=== PATIENT | female | born 1950 | race American Indian/Alaskan Native ===

== ENCOUNTER 2019-06-20 12:25 | Inpatient (IN) | payer BC, MEDICARE ==
[~2019-06-20] VITALS: Ht 167.6 cm; Wt 89.9 kg
[2019-06-20 13:38] LABS: Basophils # (auto) 0 uL; Basophils % (auto) 0.4 % (0.0-2.0); Eosinophils # (auto) 0.1 uL; Hematocrit 45.2 % (36.0-46.0); Hemoglobin 15.4 g/dL (12.2-16.2); Lymphocytes # (auto) 1.5 uL; Lymphocytes % (auto) 16.6 % (10.0-50.0); Mean Corpuscular Hgb Conc. 34.1 g/dL (32.0-36.0); Mean Corpuscular Volume 88.1 fL (80.0-100.0); Monocytes # (auto) 0.4 uL; Monocytes % (auto) 4.9 % (0.0-12.0); Neutrophils % (auto) 77.1 % (37.0-80.0); Platelet Count (auto) 166 10^3/uL (140-450); Red Blood Cells 5.13 10^6/uL (4.0-5.20); Red Cell Distribution Width 14.3 % (11.8-14.3)
[2019-06-20] MEDS ORDERED: SODIUM CHLORIDE 0.9% 1,000 ML IV ONE (13:45)
[2019-06-20] MEDS ORDERED: ONDANSETRON HCL 4 MG/2 ML VIAL IV ONE (13:45)
[2019-06-20] MEDS ORDERED: MORPHINE SULF INJ 2 MG/ML SYRINGE 1ML IV ONE ×2 (13:45→15:00)
[2019-06-20 14:01] LABS: Albumin 4.1 g/dL (3.4-5.0); Calcium 9.5 mg/dL (8.5-10.1); Potassium 3.7 mmol/L (3.5-5.1)
[2019-06-20 14:03] LABS: BUN/Creatinine Ratio 16.8
[2019-06-20 14:16] LABS: Bilirubin, Total 0.8 mg/dL (0.2-1.0); Total Protein 7.6 g/dL (6.4-8.2)
[2019-06-20] MEDS ORDERED: SODIUM CHLORIDE 0.9% 1,000 ML IVB ONE (14:20)
[2019-06-20 16:24] LABS: Urine Bacteria NONE SEEN /hpf (None Seen); Urine Blood Negative /uL (Negative); Urine Mucus FEW (None Seen); Urine Specific Gravity 1.016 (1.001-1.035); Urine WBC 5 /hpf (0 - 5)
[2019-06-20] MEDS ORDERED: GASTROGRAFIN 120 ML SOL ONE (16:31)
[2019-06-20] MEDS ORDERED: PROMETHAZINE HCL 25 MG/ML 1ML IV PRN (18:45)
[2019-06-20] MEDS ORDERED: cefTRIAXone 1GM/50ML D5W 50 ML IV ONE (18:45)
[2019-06-20] MEDS ORDERED: NITROGLYCERIN 0.4 MG SL TAB SL PRN (18:45)
[2019-06-20] MEDS ORDERED: MORPHINE SULF INJ 2 MG/ML SYRINGE 1ML IV PRN (18:45)
[2019-06-20] MEDS: FAMOTIDINE (10MG/ML) 2ML VL IV SCH (19:22)
[2019-06-20] MEDS: SODIUM CHLORIDE 0.9% 1,000 ML IV SCH (19:22)
[2019-06-20] MEDS: MORPHINE SULFATE 4 MG/ML SYR/VIAL IV PRN (19:37)
--- NOTE | 2019-06-20 20:23 | NUR ---
ROSELYNAR received from [facility] in ED, they are waiting for the tele box and the patient will be coming up.
--- NOTE | 2019-06-20 20:56 | NUR ---
Telemetry admit from [facility] SWEENE[facility],LEONIDAS TRINH admitted to Telemetry unit after SBAR received. Patient oriented to DAVID LEE, RN primary RN, unit, room, bed, and unit policies regarding patient care and visiting hours. Patient now on continuous telemetry monitoring, tele box # 60 and telemetry reading on arrival to unit is sinus tachycardia 104 bpm. Patient placed on bedside oxygen 2 L/min via nasal cannula, weighed by bedscale and encouraged to call if they need something. All questions and concerns addressed, patient verbalized understanding. Patient is A/O x4, ambulatory, no complaints of distress or SOB. Pain is 4/0-10 to abdomen but tolerable, she was given morphine in the ED prior to coming to the unit, is at bedside, she is aware of need for NG tube pending results from imaging study or if she begins to have nausea and vomiting.
--- NOTE | 2019-06-20 21:21 | NUR ---
MED REC PER PATIENT'S NEHA SWEENEY AT BEDSIDE, HE WILL BRING IN A LIST OF THE PATIENT'S CURRENT HOME MEDICATIONS TOMORROW DURING VISITING HOURS.
[2019-06-20] MEDS: metroNIDAZOLE 500MG/100ML 100 ML IV SCH (21:51)
[2019-06-20 22:00] VITALS: BP 153/103
--- NOTE | 2019-06-21 00:02 | NUR ---
Paged hospitalist for nausea medication.
--- NOTE | 2019-06-21 00:45 | NUR ---
Hospitalist called back, new orders received for Zofran, discontinue the Phenergan. Will carry out.
[2019-06-21] MEDS: ONDANSETRON HCL 4 MG/2 ML VIAL IV PRN ×3 (01:16→21:25)
[2019-06-21] MEDS: MORPHINE SULFATE 4 MG/ML SYR/VIAL IV PRN ×2 (01:16→21:36)
--- NOTE | 2019-06-21 01:29 | NUR ---
Patient vomited 300 cc of brown liquid. Zofran and morphine given as ordered for nausea and 9/0-10 pain in the abdomen. Afterwards she stated, "I feel much better. I can feel the morphine beginning to work and now I can try and go to sleep." Patient is refusing NG tube until after the imaging series is complete and the results are all come back. She is aware of the risks and benefits of having the NG tube versus not having it. Patient verbalized understanding. Will continue to monitor.
[2019-06-21 05:00] VITALS: BP 114/84
[2019-06-21] MEDS: metroNIDAZOLE 500MG/100ML 100 ML IV SCH ×3 (05:48→21:36)
[2019-06-21] MEDS: FAMOTIDINE (10MG/ML) 2ML VL IV SCH ×2 (06:20→18:24)
[2019-06-21] MEDS: SODIUM CHLORIDE 0.9% 1,000 ML IV SCH ×2 (06:21→18:24)
--- NOTE | 2019-06-21 07:20 | NUR ---
PT AWAKE, ALERT, ORIENTEDx4. REPORTS NAUSEA WITH INTENT TO VOMIT AT MOMENT, DENIES PAIN. EXPLAINED TO PATIENT NGT THERAPY AND BENEFITS, PT REFUSES NGT PLACEMENT. SHE STATES "NOT NOW" IV INFUSING WELL TO LAC#20. BED LOCKED AND IN LOWEST POSITION, CALL LIGHT WITHIN REACH. WILL CONTINUE TO MONITOR.
[2019-06-21 09:00] VITALS: BP 121/82
[2019-06-21] MEDS: cefTRIAXone 1GM/50ML D5W 50 ML IV SCH (09:57)
[2019-06-21] MEDS ORDERED: LOSA-69 PO (12:11)
[2019-06-21] MEDS ORDERED: BUPR100T14 PO (12:11)
[2019-06-21] MEDS ORDERED: SERT-274 PO (12:11)
[2019-06-21 13:00] VITALS: BP 130/100
--- NOTE | 2019-06-21 18:40 | NUR ---
EXPLAINED TO PT REASON FOR, AND BENEFIT OF NGT. DR. GALDAMEZ RECOMMENDED NGT PLACEMENT. PT AGREED TO PLACEMENT. WHILE NGT INSERTION, PT BECAME ANXIOUS AND DEMANDED TO PULL OUT NGT, PT GRABBED TUBE AND PULLED TUBE FROM SITE, PT REPORTS THAT SHE CANNOT TOLERATE THE PROCEDURE AT THIS MOMENT. PT HAD 5 EMESIS EPISODES DURING SHIFT FOR A TOTAL OF 1000ml OF GREEN EMESIS. BED LOCKED AND IN LOWEST POSITION, CALL LIGHT WITHIN REACH. AT BEDSIDE.
--- NOTE | 2019-06-21 19:30 | NUR ---
Opening Shift Note Assumed care of patient, awake and alert. No S/S of distress/SOB. at bedside. Instructed on POC and for NG tube placement, patient refused at this time despite explaining the rationale for it. Instructed to be NPO and to call for assist PRN, patient verbalized understanding, call light within reach, will continue to monitor for changes Q1hr and PRN.
--- NOTE | 2019-06-21 20:35 | NUR ---
Encouraged patient to put NG tube and discussed the importance of it. Patient refused and appears anxious at this time. Will page hospitalist
[2019-06-21] MEDS ORDERED: ALPR0.5T PO (21:07)
[2019-06-21 22:00] VITALS: BP 159/109
--- NOTE | 2019-06-21 22:00 | NUR ---
Patient still anxious at this time, paged hospitalist for anxiety med, awaiting call back. Patient still refused NG tube placement, will try to convince patient once she's calm
--- NOTE | 2019-06-21 23:29 | NUR ---
Hospitalist Eloy called back, new order received and read back, will carry out order
[2019-06-21] MEDS ORDERED: LORazepam 2MG/ML-1ML VIAL IV PRN (23:30)
[2019-06-22] MEDS: SODIUM CHLORIDE 0.9% 1,000 ML IV SCH ×2 (03:00→20:34)
[2019-06-22 04:30] VITALS: BP 161/98
[2019-06-22] MEDS ORDERED: cloNIDine HCL 0.1 MG TAB PO ONE (05:00)
--- NOTE | 2019-06-22 05:00 | NUR ---
Patient's blood pressure is 161/98, HR 78. Noted no PRN BP meds, paged hospitalist and spoke to Eloy. New order received and read back, will carry out order
[2019-06-22] MEDS: metroNIDAZOLE 500MG/100ML 100 ML IV SCH ×3 (05:50→21:31)
[2019-06-22] MEDS: FAMOTIDINE (10MG/ML) 2ML VL IV SCH ×2 (05:51→18:13)
--- NOTE | 2019-06-22 06:56 | NUR ---
Rechecked BP after Clonidine its 150/101, HR 88, O2 Sat 96%, will endorse to dayshift RN
[2019-06-22 09:00] VITALS: BP 149/106
[2019-06-22] MEDS: cefTRIAXone 1GM/50ML D5W 50 ML IV SCH (09:00)
--- NOTE | 2019-06-22 09:25 | NUR ---
PT SEEN BY DR. CAMARENA'S HYDRAULIC JACK MECHANIC SAWYER, MADE AWARE PT IS STILL REFUSING NG TUBE.
[2019-06-22] MEDS: ONDANSETRON HCL 4 MG/2 ML VIAL IV PRN ×2 (11:49→20:42)
[2019-06-22 13:00] VITALS: BP 148/92
--- NOTE | 2019-06-22 15:05 | NUR ---
PT STILL REFUSED NGT INSERTION, PT EDUCATED ON THE IMPORTANCE OF PUTTING NGT, WILL CONTINUE TO MONITOR.
[2019-06-22] MEDS: MORPHINE SULFATE 4 MG/ML SYR/VIAL IV PRN ×2 (15:13→22:58)
[2019-06-22 16:48] VITALS: BP 142/96
--- NOTE | 2019-06-22 19:35 | NUR ---
Opening Shift Note Assumed care of patient, awake and alert. No S/S of distress/SOB. Instructed on POC, patient still refused NG tube placement despite explaining the rationale for it. Instructed to be NPO and to call for assist PRN, patient verbalized understanding, call light within reach, will continue to monitor for changes Q1hr and PRN.
[2019-06-22 22:32] VITALS: BP 159/97
[2019-06-23] MEDS: ONDANSETRON HCL 4 MG/2 ML VIAL IV PRN ×4 (02:42→23:20)
[2019-06-23 05:00] VITALS: BP 163/98
--- NOTE | 2019-06-23 05:00 | NUR ---
Patient anxious at this time, BP 160/98, HR 84. Noted no PRN meds for anxiety and HTN, paged hospitalist, awaiting call back
--- NOTE | 2019-06-23 05:09 | NUR ---
Hospitalist Malik called back, received new order at this time and read back, will carry out order
[2019-06-23] MEDS ORDERED: LABETALOL HCL 5 MG/ML ML 20ML VIAL IV PRN (05:15)
[2019-06-23] MEDS: metroNIDAZOLE 500MG/100ML 100 ML IV SCH ×3 (05:45→22:14)
[2019-06-23] MEDS: SODIUM CHLORIDE 0.9% 1,000 ML IV SCH (05:45)
[2019-06-23] MEDS: LORazepam 2MG/ML-1ML VIAL IV PRN ×2 (05:47→17:01)
[2019-06-23] MEDS: FAMOTIDINE (10MG/ML) 2ML VL IV SCH ×2 (05:58→20:40)
[2019-06-23 08:00] VITALS: BP 143/78
[2019-06-23] MEDS ORDERED: FLEET ENEMA(ADULT) 135 ML PR ONE (08:15)
[2019-06-23 08:24] VITALS: BP 143/78
[2019-06-23 09:15] LABS: Potassium 3.6 mmol/L (3.5-5.1)
[2019-06-23 09:22] LABS: Albumin 3.4 g/dL (3.4-5.0); BUN/Creatinine Ratio 31.7; Bilirubin, Total 0.7 mg/dL (0.2-1.0); Calcium 8.5 mg/dL (8.5-10.1); Magnesium 2.1 mg/dL (1.6-2.6); Phosphorus 2.3 mg/dL (2.5-4.90); Pre Albumin 19.5 mg/dL (20.0-40.0); Total Protein 6.4 g/dL (6.4-8.2)
[2019-06-23] MEDS: cefTRIAXone 1GM/50ML D5W 50 ML IV SCH (09:35)
[2019-06-23] MEDS: MORPHINE SULFATE 4 MG/ML SYR/VIAL IV PRN ×2 (09:46→22:01)
[2019-06-23] MEDS ORDERED: TPN PER PHARMACY 0 ML IV SCH (11:45)
--- NOTE | 2019-06-23 12:09 | NUR ---
NUTRITION CONSULT/ASSESSMENT NOTES Please refer to link notes of nutrition screen form filed under the intervention section of the plan of care for further details. Est. Needs: 1650 kcal to 1850 kcal (18-20 kcal/kgBW), 59 gms to 65 gms pro (1.0-1.3 gms/kgBW d/t low Prealb). Will continue to monitor pertinent labs and reassess nutrient need prn Thank you for this consult. Addendum: 06/23/19 at [address] Amended: Links added.
[2019-06-23 12:42] VITALS: BP 159/95
[2019-06-23 15:08] LABS: Basophils # (auto) 0.1 uL; Basophils % (auto) 0.6 % (0.0-2.0); Eosinophils # (auto) 0.2 uL; Eosinophils % (auto) 2.3 % (0.0-7.0); Hematocrit 40.4 % (36.0-46.0); Hemoglobin 14.3 g/dL (12.2-16.2); Lymphocytes # (auto) 1.2 uL; Lymphocytes % (auto) 14.3 % (10.0-50.0); Mean Corpuscular Hemoglobin 31.2 pg (28.0-32.0); Mean Corpuscular Hgb Conc. 35.4 g/dL (32.0-36.0); Mean Corpuscular Volume 88.2 fL (80.0-100.0); Monocytes # (auto) 0.5 uL; Monocytes % (auto) 5.8 % (0.0-12.0); Neutrophils # (auto) 6.4 uL; Platelet Count (auto) 149 10^3/uL (140-450); Red Blood Cells 4.59 10^6/uL (4.0-5.20); Red Cell Distribution Width 13.9 % (11.8-14.3); White Blood Cell 8.3 10^3/uL (4.4-10.8)
[2019-06-23 15:20] LABS: INR 1.08 (0.9-1.15); Partial Thromboplastin Time 26.8 sec (23.64-32.05)
[2019-06-23] MEDS: D5W 5% 1,000 ML IV SCH ×2 (15:37→23:30)
[2019-06-23 16:40] VITALS: BP 160/87
--- NOTE | 2019-06-23 17:13 | NUR ---
PICC LINE RN AT BEDSIDE.
--- NOTE | 2019-06-23 19:30 | NUR ---
Opening Shift Note Assumed care of patient, awake and alert, ambulatory. at bedside. Instructed to maintain NPO, for Ex Lap tomorrow. Instructed to call for assist as needed, patient verbalized understanding, call light within reach, will continue to monitor for changes Q1hr and PRN.
[2019-06-23] MEDS ORDERED: PPN PER PHARMACY IV NR ×9 (20:00)
[2019-06-23] MEDS ORDERED: SODIUM CHLORIDE 0.9% 1,000 ML IV SCH (20:00)
--- NOTE | 2019-06-23 22:15 | NUR ---
Fleet enema done, patient on bedside commode and had a very small bowel movement. Vomited bilous of 300 ml as well. Instructed the need of NG tube placement explaining the rationale of it but patient still refused. Kept NPO, will continue to monitor
--- NOTE | 2019-06-23 22:40 | NUR ---
IV leaking on LAC, removed with catheter intact, patient tolerated well
--- NOTE | 2019-06-23 22:45 | NUR ---
IV insertion IV access obtained, via clean sterile technique by inserting 20 gauge catheter at Right Hand and 18g on Right wrist after [1] attempt by SHANIQUE Uriostegui. IV secured properly. No trauma to site. Patient tolerated well.
[2019-06-24] MEDS ORDERED: DEXTROSE (50%) 50ML SYRG IV SCH
[2019-06-24] MEDS: ACCU-CHEK COMFORT CURVE STRIP VI SCH ×4 (00:26→17:53)
[2019-06-24 05:57] VITALS: BP 166/92
[2019-06-24] MEDS: InsuLIN REG 1unit/0.01ml Soln (100units/ml) SC SCH ×4 (06:00→17:53)
[2019-06-24] MEDS: ONDANSETRON HCL 4 MG/2 ML VIAL IV PRN ×2 (06:06→17:52)
[2019-06-24] MEDS: metroNIDAZOLE 500MG/100ML 100 ML IV SCH ×3 (06:06→21:30)
[2019-06-24] MEDS: FAMOTIDINE (10MG/ML) 2ML VL IV SCH ×2 (06:06→19:10)
--- NOTE | 2019-06-24 06:35 | NUR ---
CHG wipes done, complete linen changed
[2019-06-24] MEDS ORDERED: DOXAPRAM HCL 20 MG/ML 20ML VIAL INJ IV ONE (06:58)
[2019-06-24] MEDS ORDERED: SUCCINYLCHOLINE CHLORIDE 20 MG/ML 10ML VIAL IV ONE (06:58)
--- NOTE | 2019-06-24 07:00 | NUR ---
Brought patient down to Pre Op, patient alert/oriented and not in distress. Endorsed care to SHANIQUE Bender
[2019-06-24 07:13] LABS: Basophils # (auto) 0.1 uL; Basophils % (auto) 1.1 % (0.0-2.0); Eosinophils # (auto) 0.2 uL; Eosinophils % (auto) 2.9 % (0.0-7.0); Hemoglobin 14.3 g/dL (12.2-16.2); Lymphocytes % (auto) 13.8 % (10.0-50.0); Mean Corpuscular Hemoglobin 30.3 pg (28.0-32.0); Mean Corpuscular Hgb Conc. 34.8 g/dL (32.0-36.0); Mean Corpuscular Volume 86.9 fL (80.0-100.0); Monocytes # (auto) 0.5 uL; Monocytes % (auto) 6.6 % (0.0-12.0); Neutrophils # (auto) 5.7 uL; Neutrophils % (auto) 75.6 % (37.0-80.0); Platelet Count (auto) 151 10^3/uL (140-450); Red Blood Cells 4.72 10^6/uL (4.0-5.20); Red Cell Distribution Width 14.3 % (11.8-14.3); White Blood Cell 7.5 10^3/uL (4.4-10.8)
[2019-06-24] MEDS ORDERED: ceFAZolin 1GM/50ML 50 ML IV ONE (07:19)
--- NOTE | 2019-06-24 07:25 | NUR ---
Opening Shift Note Assumed care of patient, patient off floor in procedure.
[2019-06-24 07:26] LABS: Albumin 3.6 g/dL (3.4-5.0); Calcium 8.6 mg/dL (8.5-10.1); Potassium 3.3 mmol/L (3.5-5.1)
[2019-06-24] MEDS ORDERED: fentaNYL CITRATE 100 MCG/2 ML VL ONE (07:26)
[2019-06-24] MEDS ORDERED: HYDROmorphone HCL 2 MG/ML VL ONE (07:26)
[2019-06-24] MEDS ORDERED: fentaNYL CITRATE 10 ML ONE (07:26)
[2019-06-24] MEDS ORDERED: PROPOFOL 10 MG/ML 20 ML IV ONE (07:27)
[2019-06-24] MEDS ORDERED: ONDANSETRON HCL 4 MG/2 ML VIAL ONE (07:27)
[2019-06-24] MEDS ORDERED: MIDAZOLAM HCL 1MG/1ML-2 ML VIAL ONE (07:27)
[2019-06-24] MEDS ORDERED: ROCURONIUM 10MG/ML 10ML VIAL IV ONE (07:27)
[2019-06-24] MEDS ORDERED: SODIUM CHLORIDE LOCK 10 ML ONE (07:27)
[2019-06-24 07:28] LABS: BUN/Creatinine Ratio 32.1
[2019-06-24 07:31] LABS: Bilirubin, Total 0.9 mg/dL (0.2-1.0); Total Protein 6.7 g/dL (6.4-8.2)
[2019-06-24 07:34] LABS: Phosphorus 2.1 mg/dL (2.5-4.90)
[2019-06-24] MEDS ORDERED: HYDROmorphone HCL 2 MG/ML VL IV PRN (09:00)
[2019-06-24] MEDS: cefTRIAXone 1GM/50ML D5W 50 ML IV SCH (09:00)
[2019-06-24] MEDS ORDERED: fentaNYL CITRATE 100 MCG/2 ML VL IV PRN (09:00)
[2019-06-24] MEDS ORDERED: METOCLOPRAMIDE HCL 5MG/ml INJ 2ml VIAL IV PRN (09:00)
[2019-06-24] MEDS: D5W 5% 1,000 ML IV SCH ×2 (09:30→19:30)
[2019-06-24] MEDS ORDERED: POTASSIUM PHOSPHATE 44 MEQ in D5W 5% 250 ML IV ONE (09:30)
[2019-06-24] MEDS ORDERED: NEOSTIGMINE 1 MG/ML INJ (10mg/10ML VIAL) ONE (09:42)
[2019-06-24] MEDS ORDERED: GLYCOPYRROLATE 0.2 MG/ML 1ML VIAL ONE (09:42)
[2019-06-24] MEDS ORDERED: ENOXAPARIN SOD 40 MG/0.4 ML SYRINGE SC SCH (10:00)
[2019-06-24] MEDS ORDERED: D5W/SOD CHL 0.45%/KCL 40MEQ 1,000 ML IV ONE ×2 (10:15→12:45)
[2019-06-24] MEDS ORDERED: TPN PER PHARMACY 0 ML IV SCH (10:15)
--- NOTE | 2019-06-24 11:28 | NUR ---
Patient returned to floor from surgery, VS 118/81, 93%, 90 HR, 96.3 axillary, RR 18. Patient NG to LIS. Patient resting in bed with bedside. Will continue to monitor. Addendum: 06/24/19 at 1142 by GRACY FUENTES RN RN Patient NG on Low Continuous suction
[2019-06-24 12:49] VITALS: BP 118/81
--- NOTE | 2019-06-24 14:12 | NUR ---
PICC Line nurse bedside with patient.
--- NOTE | 2019-06-24 14:45 | NUR ---
PICC line placement Patient/Patient significant other educated on need for PICC line placement. All risks and benefits explained and all questions and concerns addressed prior to procedure. Noted past medical history and allergies with no contraindications. INR and Plt counts within acceptable range. 5 fr PICC line inserted via left basilic vein using [employer] US and Tip Location System x 1 attempt. Sterile technique with maximum barrier precautions utilized. Blood return obtained from each of the two lumens and each flushed easily with NS using proper technique. PICC secured with Stat-lock; biodisc and occlusive dressing applied. Stat portable chest x-ray obtained for PICC tip placement. *Baseline Arm Circumference 29.5 cm. *Internal Length 44 cm. *External Length 0 cm. *PICC lot #[id number]. Note: EBL 2mls. Tolerated well.
[2019-06-24] MEDS ORDERED: LIDOCAINE 1% (LOCAL ANESTH.) PF 5ml SDV ID ONE (15:00)
--- NOTE | 2019-06-24 15:02 | NUR ---
Okay to use PICC Line X-ray completed. Primary RN notified.
[2019-06-24 17:00] VITALS: BP 120/79
[2019-06-24] MEDS: MORPHINE SULFATE 4 MG/ML SYR/VIAL IV PRN (17:52)
--- NOTE | 2019-06-24 19:34 | NUR ---
OPENING NOTES RECEIVED REPORT FROM DAY SHIFT NURSE, GRACY. PT IS AWAKE, ALERT AND ORIENTATED X 4 WITH NO S/S OF DISTRESS NOR SOB, PT CLAIMS PAIN 5/10. PT HAS NG TUBE AND ON CONTINUOUS INTERMITTENT SUCTION. ABDOMEN MIDLINE INCISION INTACT WITH SCANT DISCHARGE. PT HAS PPN RUNNING AT 44ML VIA LEFT UPPER ARM PICC LINE. BED IS IN LOWEST POSITION AND HOB IS 30 DEGREES. SIDE RAILS ARE UP X 2. BED BRAKES ARE LOCKED AND CALL LIGHT IS WITH IN REACH. WILL CONTINUE TO MONITOR Q 1HR.
[2019-06-24 20:00] VITALS: BP 135/80
[2019-06-24] MEDS ORDERED: PPN PER PHARMACY IV NR ×11 (20:00)
[2019-06-24] MEDS: LORazepam 2MG/ML-1ML VIAL IV PRN (21:29)
[2019-06-24] MEDS: SODIUM CHLOR 0.9% PF (SALINE LOCK) 10ML VIAL/SYR IV SCH (21:30)
[2019-06-24 22:54] VITALS: BP 126/78
[2019-06-25] MEDS: ACCU-CHEK COMFORT CURVE STRIP VI SCH ×4 (00:02→17:44)
[2019-06-25] MEDS: MORPHINE SULFATE 4 MG/ML SYR/VIAL IV PRN ×3 (00:09→17:44)
[2019-06-25] MEDS: ONDANSETRON HCL 4 MG/2 ML VIAL IV PRN ×3 (00:09→17:44)
[2019-06-25] MEDS: InsuLIN REG 1unit/0.01ml Soln (100units/ml) SC SCH ×4 (00:10→17:44)
[2019-06-25 05:35] VITALS: BP 142/87
[2019-06-25] MEDS: metroNIDAZOLE 500MG/100ML 100 ML IV SCH ×3 (05:48→21:33)
[2019-06-25] MEDS: LORazepam 2MG/ML-1ML VIAL IV PRN ×2 (05:55→21:33)
[2019-06-25] MEDS: FAMOTIDINE (10MG/ML) 2ML VL IV SCH ×2 (06:27→18:53)
--- NOTE | 2019-06-25 06:57 | NUR ---
NG OUTPUT 110 ML OF DARK GREEN FLUID.
--- NOTE | 2019-06-25 07:27 | NUR ---
CLOSING NOTES ENDORSED CARE TO DAY SHIFT NURSEPATO.
[2019-06-25 08:00] VITALS: BP 137/93
--- NOTE | 2019-06-25 08:00 | NUR ---
Opening Shift Note Assumed care of patient, awake and alert. No S/S of distress/SOB or pain. Instructed on POC and to call for assist PRN, will continue to monitor for changes Q1hr and PRN. Call light within reach and bed at lowest position.
[2019-06-25] MEDS: cefTRIAXone 1GM/50ML D5W 50 ML IV SCH (08:58)
[2019-06-25] MEDS: SODIUM CHLOR 0.9% PF (SALINE LOCK) 10ML VIAL/SYR IV SCH ×2 (08:59→21:33)
[2019-06-25 09:00] VITALS: BP 137/93
[2019-06-25 09:31] LABS: Basophils # (auto) 0 uL; Basophils % (auto) 0.5 % (0.0-2.0); Eosinophils # (auto) 0 uL; Eosinophils % (auto) 0.4 % (0.0-7.0); Hematocrit 33.5 % (36.0-46.0); Hemoglobin 11.8 g/dL (12.2-16.2); Lymphocytes # (auto) 1.1 uL; Lymphocytes % (auto) 14.9 % (10.0-50.0); Mean Corpuscular Hemoglobin 32.2 pg (28.0-32.0); Mean Corpuscular Hgb Conc. 35.2 g/dL (32.0-36.0); Mean Corpuscular Volume 91.4 fL (80.0-100.0); Monocytes # (auto) 0.4 uL; Monocytes % (auto) 5.6 % (0.0-12.0); Neutrophils # (auto) 5.6 uL; Neutrophils % (auto) 78.6 % (37.0-80.0); Nucleated Red Blood Cells % 0.1 %; Platelet Count (auto) 119 10^3/uL (140-450); Red Blood Cells 3.67 10^6/uL (4.0-5.20); Red Cell Distribution Width 14.4 % (11.8-14.3); White Blood Cell 7.1 10^3/uL (4.4-10.8)
--- NOTE | 2019-06-25 10:45 | NUR ---
RECEIVED A CALL FROM LAB, PATIENT LAB VALUES HIGH, MAY BE CONTAMINATED DRAW. LAB TO COME TO DRAW NEW LABS VIA VENIPUNCTURE NOT THROUGH PICC LINE.
--- NOTE | 2019-06-25 12:00 | NUR ---
DR HENRY ROUNDING ORDERS RECEIVED WILL IMPLEMENT
--- NOTE | 2019-06-25 12:02 | NUR ---
PER DR HENRY PATIENT TO SIT UP AND AMBULATE WITH ASSIST.
[2019-06-25] MEDS ORDERED: ENOXAPARIN SOD 40 MG/0.4 ML SYRINGE SC ONE (12:15)
--- NOTE | 2019-06-25 12:33 | NUR ---
Nutrition Follow-up Notes Wt.: 89.3 kg Pt was sleeping with no family by bedside. per records pt s/p sx for SBO 06/24. pt is currently NPO with PN support @ 58 ml.hr providing 848 kcals and 60 gm proteins 608 NPC. pt with inadequate PN support as it meets 45-51% kcals and 95-1015 proteins Est. Needs: 1650 kcal to 1850 kcal (18-20 kcal/kgBW), 59 gms to 65 gms pro (1.0-1.3 gms/kgBW d/t low Prealb). Will continue to monitor pertinent labs and reassess nutrient need prn Labs: GLU 121 H, BUN 27 H Skin: Tree scale 19, low risk, incision at site of sx per transcribing machine operator. GI: Pt has no BM reported per transcribing machine operator. PES: Altered nutrition related lab values r/t current/chronic medical condition aeb hyperglycemia, hypernatremia, hyperchloremia, elev. BUN, low Phos and Prealbumin levels. Increased nutrient needs r/t current medical condition aeb Acute abdominal pain,Small bowel obstruction,History of uterine cancer, NPO with PN support. Will continue to monitor NPO status, PN tolerance skin status, pertinent labs and weight trend. F/u in 2-3 days. Rec.: 1.) If still NPO with PN support, consider gradual increase on calories and protein to meet at least 75% of est nutrient needs. 2.) Advance gradually to oral diet when medically appropriate. 3.) Refer to RD for further nutrition educ. and weight monitoring upon discharge. 4.) Continue current plan of care.
[2019-06-25 13:00] VITALS: BP 141/88
[2019-06-25 13:21] LABS: Albumin 2.6 g/dL (3.4-5.0); Calcium 7.9 mg/dL (8.5-10.1); Magnesium 1.8 mg/dL (1.6-2.6); Potassium 3.4 mmol/L (3.5-5.1)
[2019-06-25 13:24] LABS: BUN/Creatinine Ratio 24.1; Bilirubin, Total 0.8 mg/dL (0.2-1.0); Total Protein 5.4 g/dL (6.4-8.2)
[2019-06-25] MEDS ORDERED: POTASSIUM PHOSP 22MEQ(15MMOLE) in NS 100 ML IV ONE (14:30)
[2019-06-25 17:00] VITALS: BP 125/80
--- NOTE | 2019-06-25 19:47 | NUR ---
RECEIVED PATIENT FROM DAY SHIFT RN. PATENT RESTING IN BED. NO S/S OF DISTRESS NOTED. DENIED PAIN AND NAUSEA FOR NOW. NG TUBE IN PLACE ON LCS, DEE CATH IN PLACE DRAINING GRAVITY. PICC LINE IN PLACE FLUSHING WELL WITH NS. POC INSTRUCTED AND ENCOURAGED PATIENT TO CALL FOR IMPORT EXPORT MANAGER IF NEEDED. BED IN LOWEST POSITION WITH SIDE RAILS UP X 2. CALL POTTS WITHIN REACH. ALARM ON. CONTINUE TO MONITOR FOR CHANGES Q1H AND PRN.
[2019-06-25] MEDS ORDERED: TPN PER PHARMACY IV NR ×11 (20:00)
[2019-06-25 21:00] VITALS: BP 138/78
[2019-06-25] MEDS ORDERED: POTASSIUM PHOSPHATE 22 MEQ in SODIUM CHL 0.9% 100 ML IV ONE (21:00)
--- NOTE | 2019-06-25 21:43 | NUR ---
CALLED PHARMACY FOR POTASSIUM. WILL SENT IT LATER. CONTINUE TO MONITOR.
[2019-06-26] MEDS: InsuLIN REG 1unit/0.01ml Soln (100units/ml) SC SCH ×4 (00:16→18:44)
[2019-06-26] MEDS: ACCU-CHEK COMFORT CURVE STRIP VI SCH ×4 (00:17→18:00)
[2019-06-26] MEDS: MORPHINE SULFATE 4 MG/ML SYR/VIAL IV PRN (00:17)
[2019-06-26] MEDS: ONDANSETRON HCL 4 MG/2 ML VIAL IV PRN ×2 (00:17→18:47)
--- NOTE | 2019-06-26 00:19 | NUR ---
PAIN MANAGEMENT MEDICATED PATIENT FOR PAIN @ 04/08. CONTINUE TO MONITOR.
--- NOTE | 2019-06-26 00:19 | NUR ---
ACCU-CHECK, BS 148. INSULIN GIVEN ORDERED. CONTINUE TO MONITOR.
--- NOTE | 2019-06-26 03:04 | NUR ---
ASSISTED PATIENT TO BEDSIDE COMMODE. PATIENT TOLERATED WELL. NO BM. CONTINUE TO MONITOR.
[2019-06-26 04:30] VITALS: BP 145/79
[2019-06-26] MEDS: metroNIDAZOLE 500MG/100ML 100 ML IV SCH ×3 (06:02→22:21)
[2019-06-26] MEDS: FAMOTIDINE (10MG/ML) 2ML VL IV SCH ×2 (06:03→18:45)
[2019-06-26] MEDS: LORazepam 2MG/ML-1ML VIAL IV PRN ×3 (06:03→23:09)
--- NOTE | 2019-06-26 06:03 | NUR ---
ACCU-CHECK, BS 145. INSULIN GIVEN ORDERED. CONTINUE TO MONITOR.
--- NOTE | 2019-06-26 07:32 | NUR ---
TOTAL OUTPUT FROM NG TUBE WAS 100 ML GREENISH BILE. CONTINUE TO MONITOR.
[2019-06-26 08:00] VITALS: BP 142/56
[2019-06-26 09:00] VITALS: BP 142/86
[2019-06-26 09:13] LABS: Basophils # (auto) 0.1 uL; Basophils % (auto) 0.8 % (0.0-2.0); Eosinophils # (auto) 0.1 uL; Eosinophils % (auto) 1.7 % (0.0-7.0); Hemoglobin 11.5 g/dL (12.2-16.2); Lymphocytes # (auto) 1.1 uL; Lymphocytes % (auto) 14.6 % (10.0-50.0); Mean Corpuscular Hemoglobin 30.3 pg (28.0-32.0); Mean Corpuscular Hgb Conc. 34.8 g/dL (32.0-36.0); Mean Corpuscular Volume 86.8 fL (80.0-100.0); Monocytes # (auto) 0.5 uL; Monocytes % (auto) 6.4 % (0.0-12.0); Neutrophils # (auto) 5.5 uL; Neutrophils % (auto) 76.5 % (37.0-80.0); Platelet Count (auto) 119 10^3/uL (140-450); White Blood Cell 7.3 10^3/uL (4.4-10.8)
[2019-06-26] MEDS: cefTRIAXone 1GM/50ML D5W 50 ML IV SCH (09:23)
[2019-06-26] MEDS: ENOXAPARIN SOD 40 MG/0.4 ML SYRINGE SC SCH (09:24)
[2019-06-26 09:28] LABS: Albumin 2.2 g/dL (3.4-5.0); Calcium 7.7 mg/dL (8.5-10.1); Magnesium 1.9 mg/dL (1.6-2.6); Potassium 3.5 mmol/L (3.5-5.1)
[2019-06-26] MEDS: SODIUM CHLOR 0.9% PF (SALINE LOCK) 10ML VIAL/SYR IV SCH ×2 (09:30→22:21)
[2019-06-26 09:31] LABS: BUN/Creatinine Ratio 23.9; Bilirubin, Total 0.5 mg/dL (0.2-1.0); Phosphorus 2.1 mg/dL (2.5-4.90); Total Protein 5.1 g/dL (6.4-8.2)
[2019-06-26 13:00] VITALS: BP 130/84
[2019-06-26] MEDS ORDERED: POTASSIUM PHOSP 26.4MEQ(18MMOL) IN NS 100 ML IV ONE (14:00)
--- NOTE | 2019-06-26 15:20 | NUR ---
DEE REMOVED WITH TOTAL OUTPUT 500ML PATIENT TOLERATED WELL
--- NOTE | 2019-06-26 16:13 | NUR ---
PATIENT HAS BEEN TO THE BEDSIDE COMMODE SEVERAL TIMES TODAY, NO BM. PATIENT WAS ABLE TO GET BACK IN BAD INDEPENDENTLY WELL SIT UP AT THE EDGE OF BED INDEPENDENTLY.
[2019-06-26 16:58] VITALS: BP 144/83
--- NOTE | 2019-06-26 19:40 | NUR ---
Opening Shift Note Assumed care of patient, awake and alert. No S/S of distress/SOB or pain. Family at bedside. Bed in lowest locked position, side rails up x2, call light within reach. Midline dressing noted to be clean, dry, and intact with minimal drainage. Abdominal binder noted in place. Patient denies flatus, denies bowel movement at this time. Patient told to inform staff if either occur, patient verbalized understanding. NG tube connected to low continuous suction as ordered, dark green drainage noted in canister at this time. Instructed on POC and to call for assist PRN, will continue to monitor for changes Q1hr and PRN. Addendum: 06/27/19 at 0802 by SHER GONZALEZ RN RN ADDITION: Patient educated on use and importance of incentive spirometer, patient verbalized understanding. Will encourage use throughout shift and continue to monitor.
[2019-06-26] MEDS ORDERED: TPN PER PHARMACY IV NR ×11 (20:00)
[2019-06-26 22:00] VITALS: BP 143/86
--- NOTE | 2019-06-26 22:00 | NUR ---
Regarding Pain Patient reporting 6/10 pain to abdominal incision, refusing to take ordered PRN Morphine without Zofran, requesting PRN Ativan at this time. Patient made aware Ativan not due yet, will administer as ordered. Patient verbalized understanding. Will continue to monitor.
[2019-06-27] MEDS: MORPHINE SULFATE 4 MG/ML SYR/VIAL IV PRN ×2 (01:17→17:50)
[2019-06-27] MEDS: ONDANSETRON HCL 4 MG/2 ML VIAL IV PRN ×2 (01:18→17:51)
[2019-06-27 05:42] VITALS: BP 140/86
[2019-06-27 06:21] LABS: Basophils # (auto) 0 uL; Basophils % (auto) 0.5 % (0.0-2.0); Eosinophils # (auto) 0.1 uL; Eosinophils % (auto) 2.3 % (0.0-7.0); Hematocrit 30.5 % (36.0-46.0); Lymphocytes # (auto) 0.9 uL; Lymphocytes % (auto) 14.3 % (10.0-50.0); Mean Corpuscular Hemoglobin 31.2 pg (28.0-32.0); Mean Corpuscular Hgb Conc. 36.2 g/dL (32.0-36.0); Mean Corpuscular Volume 86.3 fL (80.0-100.0); Monocytes # (auto) 0.4 uL; Monocytes % (auto) 6.2 % (0.0-12.0); Neutrophils # (auto) 4.8 uL; Neutrophils % (auto) 76.7 % (37.0-80.0); Platelet Count (auto) 120 10^3/uL (140-450); Red Blood Cells 3.54 10^6/uL (4.0-5.20); Red Cell Distribution Width 14.2 % (11.8-14.3); White Blood Cell 6.3 10^3/uL (4.4-10.8)
[2019-06-27 06:44] LABS: Potassium 3.5 mmol/L (3.5-5.1)
[2019-06-27 06:56] LABS: Albumin 2.2 g/dL (3.4-5.0); BUN/Creatinine Ratio 26.2; Bilirubin, Total 0.5 mg/dL (0.2-1.0); Calcium 7.7 mg/dL (8.5-10.1); Magnesium 2.1 mg/dL (1.6-2.6); Total Protein 4.9 g/dL (6.4-8.2)
[2019-06-27] MEDS: FAMOTIDINE (10MG/ML) 2ML VL IV SCH ×2 (06:57→19:59)
[2019-06-27] MEDS: ACCU-CHEK COMFORT CURVE STRIP VI SCH ×5 (06:57→23:56)
[2019-06-27] MEDS: metroNIDAZOLE 500MG/100ML 100 ML IV SCH ×3 (06:57→23:55)
[2019-06-27] MEDS: InsuLIN REG 1unit/0.01ml Soln (100units/ml) SC SCH ×4 (07:07→17:49)
--- NOTE | 2019-06-27 07:17 | NUR ---
Closing Note Patient lying in bed, eyes closed, respirations even and unlabored, appears asleep. No s/s of distress. Bed in lowest locked position, side rails up x2, call light within reach. Care endorsed to mitch BAY. Addendum: 06/27/19 at 800 by SHER GONZALEZ RN RN ADDITION: 50 ml of dark green output removed from NG tube canister. Addendum: 06/27/19 at 08 by SHRE GONZALEZ RN RN ADDITION: Patient denies flatulence, denies bowel movement at time of note, despite multiple trips to bedside commode.
--- NOTE | 2019-06-27 07:25 | NUR ---
Opening Shift Note Assumed care of patient, awake and alert. No S/S of distress/SOB or pain. Instructed on POC and to call for assist PRN, will continue to monitor for changes Q1hr and PRN.
[2019-06-27 08:00] VITALS: BP 140/83
[2019-06-27 08:10] VITALS: BP 140/83
[2019-06-27] MEDS: cefTRIAXone 1GM/50ML D5W 50 ML IV SCH (09:08)
[2019-06-27] MEDS: LORazepam 2MG/ML-1ML VIAL IV PRN ×2 (09:09→20:36)
[2019-06-27] MEDS: ENOXAPARIN SOD 40 MG/0.4 ML SYRINGE SC SCH (10:11)
[2019-06-27] MEDS: SODIUM CHLOR 0.9% PF (SALINE LOCK) 10ML VIAL/SYR IV SCH ×2 (10:13→23:56)
[2019-06-27] MEDS ORDERED: TEMAZEPAM 15 MG CAP NG PRN (10:15)
[2019-06-27 12:00] VITALS: BP 147/94
--- NOTE | 2019-06-27 13:30 | NUR ---
PICC LINE REMOVED BY TOWN ADMINISTRATOR CHRIS. PICC LINE CATHETER INTACT, PRESSURE APPLIED, COVERED WITH 2X2 AND COVERED WITH TEGADERMZoran QUILES AT BEDSIDE,PATIENT TOLERATED WELL. Addendum: 06/27/19 at 1617 by MARIE SAUNDERS RN RN WRONG PATIENT.
[2019-06-27] MEDS: ALPRAZolam 0.5 MG TAB NG SCH ×3 (14:00→23:48)
--- NOTE | 2019-06-27 14:00 | NUR ---
UNABLE TO VERIFY PLACEMENT OF NGT. ALPRAZOLAM NOT GIVEN TILL PLACEMENT CONFIRMED.
--- NOTE | 2019-06-27 14:39 | NUR ---
PAGED DOCTOR MIGUE. AWAITING CALL BACK.
--- NOTE | 2019-06-27 15:15 | NUR ---
UNABLE TO VERIFY PLACEMENT OF NGT. SPOKE WITH YARI REGARDING NG TUBE PLACEMENT.ORDERS RECEIVED TO VERIFY PLACEMENT WITH CHEST XRAY. PER RAMONA OKAY TO ADVANCE NG TUBE IF NOT IN POSITION.
[2019-06-27 16:57] VITALS: BP 134/82
--- NOTE | 2019-06-27 17:00 | NUR ---
PATIENT REFUSED ADVANCEMENT OF NG TUBE.
--- NOTE | 2019-06-27 19:00 | NUR ---
NOC RN AWARE OF NG TUBE NOT IN POSITION. CARE ENDORSED TO WIRE WEAVER HELPER.
--- NOTE | 2019-06-27 19:20 | NUR ---
Opening Shift Note Assumed care of patient, awake and alert. No S/S of distress/SOB or pain. Family at bedside. Bed in lowest locked position, side rails up x2, call light within reach. Midline dressing noted to be clean, dry, and intact with minimal drainage. Abdominal binder noted in place. Patient again denies flatus, denies bowel movement at this time. Patient told to inform staff if either occur, patient verbalized understanding. Patient reporting epistaxis, states she has nose bleeds, "two to three times a week at home". NG tube advanced as ordered by Dr. Regine Bush to 65 cm, 400 ml of dark green drainage output drained into canister at time of advancement. Placement confirmed with auscultation and patient reporting relief from abdominal pain, will also confirm with morning chest x-ray. NG tube again connected to low continuous suction as ordered, dark green drainage noted in canister at this time. Instructed on POC and to call for assist PRN, will continue to monitor for changes Q1hr and PRN. Patient educated on use and importance of incentive spirometer, patient verbalized understanding. Will again encourage use throughout shift and continue to monitor.
[2019-06-27] MEDS ORDERED: TPN PER PHARMACY IV NR ×10 (20:00)
[2019-06-27 22:12] VITALS: BP 131/90
--- NOTE | 2019-06-27 23:35 | NUR ---
Regarding Xanex Patient refusing Xanex at this time, states she does not want it administered through NG tube because she does "not want anything to happen to [the NG tube]." Patient educated on administration of medication through NG tube including why medication cannot be administered PO. Patient verbalized understanding, continues to refuse at this time, states "I would rather wait for my Ativan." Patient aware Ativan not due at this time and will be administered as ordered, patient verbalized understanding. No s/s of distress. Will continue to monitor.
[2019-06-28] VITALS (7 sets, daily range): BP systolic 123–134; BP diastolic 75–90
[2019-06-28] MEDS: ONDANSETRON HCL 4 MG/2 ML VIAL IV PRN ×3 (00:29→20:41)
[2019-06-28] MEDS: InsuLIN REG 1unit/0.01ml Soln (100units/ml) SC SCH ×4 (00:30→18:00)
[2019-06-28] MEDS: MORPHINE SULFATE 4 MG/ML SYR/VIAL IV PRN ×3 (00:30→20:41)
[2019-06-28] MEDS: ALPRAZolam 0.5 MG TAB NG SCH (06:00)
[2019-06-28] MEDS: FAMOTIDINE (10MG/ML) 2ML VL IV SCH ×2 (06:27→18:55)
[2019-06-28] MEDS: ACCU-CHEK COMFORT CURVE STRIP VI SCH ×3 (06:28→18:01)
[2019-06-28] MEDS: metroNIDAZOLE 500MG/100ML 100 ML IV SCH ×3 (06:28→22:10)
[2019-06-28] MEDS: LORazepam 2MG/ML-1ML VIAL IV PRN ×2 (06:44→22:10)
--- NOTE | 2019-06-28 07:30 | NUR ---
Closing Note Patient lying in bed, eyes closed, respirations even and unlabored, appears asleep. No s/s of distress. Bed in lowest locked position, side rails up x2, call light within reach. 600 ml of dark green output removed from NG tube canister. Patient denies flatulence, denies bowel movement. Bowel sounds noted to be more active than on previous shift. Care endorsed to dayshift RN.
--- NOTE | 2019-06-28 07:30 | NUR ---
Opening Shift Note Assumed care of patient, awake and alert. No S/S of distress/SOB or pain. Bed in lowest locked position, side rails up x2, call light within reach. Discussed POC. Midline dressing noted to be clean, dry, and intact with minimal drainage. Abdominal binder noted in place. Patient again denies flatus, denies bowel movement at this time.
[2019-06-28 07:33] LABS: Albumin 2.3 g/dL (3.4-5.0); Calcium 7.8 mg/dL (8.5-10.1); Magnesium 2.2 mg/dL (1.6-2.6); Potassium 3.8 mmol/L (3.5-5.1)
[2019-06-28 07:37] LABS: BUN/Creatinine Ratio 23.5; Bilirubin, Total 0.5 mg/dL (0.2-1.0); Phosphorus 3.4 mg/dL (2.5-4.90); Pre Albumin 12.1 mg/dL (20.0-40.0); Total Protein 5.3 g/dL (6.4-8.2)
[2019-06-28] MEDS: cefTRIAXone 1GM/50ML D5W 50 ML IV SCH (09:00)
[2019-06-28] MEDS: SODIUM CHLOR 0.9% PF (SALINE LOCK) 10ML VIAL/SYR IV SCH ×2 (09:46→22:11)
[2019-06-28] MEDS: ENOXAPARIN SOD 40 MG/0.4 ML SYRINGE SC SCH (09:46)
--- NOTE | 2019-06-28 13:30 | NUR ---
Ambulated with Pt 200 feet. Patient tolerated well
--- NOTE | 2019-06-28 19:45 | NUR ---
Opening Shift Note Assumed care of patient, awake and alert. No S/S of distress/SOB, patient reporting 6/10 abdominal pain, will medicate as ordered after assessment of vital signs. Bed in lowest locked position, side rails up x2, call light within reach. Midline dressing noted to be clean, dry, and intact with minimal drainage. Abdominal binder noted in place. Patient reports "small" flatus, denies bowel movement at this time. Patient told to inform staff if either occur, patient verbalized understanding. NG tube remains connected to low continuous suction as ordered, dark green drainage noted in canister at this time. Instructed on POC and to call for assist PRN, will continue to monitor for changes Q1hr and PRN. Patient again educated on use and importance of incentive spirometer, patient verbalized understanding. Will again encourage use throughout shift and continue to monitor.
[2019-06-28] MEDS ORDERED: TPN PER PHARMACY IV NR ×11 (20:00)
[2019-06-29] MEDS: InsuLIN REG 1unit/0.01ml Soln (100units/ml) SC SCH ×4 (00:37→18:20)
[2019-06-29] MEDS: ACCU-CHEK COMFORT CURVE STRIP VI SCH ×4 (00:37→18:20)
[2019-06-29] MEDS: ONDANSETRON HCL 4 MG/2 ML VIAL IV PRN ×3 (03:54→21:14)
[2019-06-29] MEDS: MORPHINE SULFATE 4 MG/ML SYR/VIAL IV PRN ×3 (03:54→21:20)
[2019-06-29 05:27] VITALS: BP 123/85
[2019-06-29] MEDS: metroNIDAZOLE 500MG/100ML 100 ML IV SCH ×3 (06:16→21:15)
[2019-06-29] MEDS: LORazepam 2MG/ML-1ML VIAL IV PRN ×2 (06:17→19:40)
[2019-06-29] MEDS: FAMOTIDINE (10MG/ML) 2ML VL IV SCH ×2 (06:17→18:44)
[2019-06-29 07:10] LABS: Albumin 2.4 g/dL (3.4-5.0); BUN/Creatinine Ratio 23.3; Calcium 7.9 mg/dL (8.5-10.1); Magnesium 2.2 mg/dL (1.6-2.6); Potassium 3.6 mmol/L (3.5-5.1)
[2019-06-29 07:17] LABS: Bilirubin, Total 0.6 mg/dL (0.2-1.0); Total Protein 5.3 g/dL (6.4-8.2)
--- NOTE | 2019-06-29 07:30 | NUR ---
Opening Shift Note Assumed care of patient, awake, alert, and oriented x4. No S/S of distress/SOB, but patient is reporting medial lower abdominal pain of 5/10. PICC line is in left upper arm triple lumen and is asymptomatic, intact, patent, and infusing TPN at 68 mL/hour. NG tube in left nostril is patent and draining clear dark green fluid. Abdominal dressing is clean, dry, intact, and abdominal binder is on. Bowel sounds are hypoactive. Bed is locked and in lowest position and call light is within reach. Instructed on POC and to call for assist PRN, and patient verbalized understanding. Will continue to monitor for changes Q1hr and PRN.
--- NOTE | 2019-06-29 07:35 | NUR ---
Closing Note Patient lying in bed, eyes closed, respirations even and unlabored, appears asleep. No s/s of distress. Bed in lowest locked position, side rails up x2, call light within reach. 200 ml of dark green output from NG tube. Patient denying bowel movement. Care endorsed to dayshift RN.
[2019-06-29 08:00] VITALS: BP 141/87
[2019-06-29] MEDS: ENOXAPARIN SOD 40 MG/0.4 ML SYRINGE SC SCH (08:35)
[2019-06-29] MEDS: cefTRIAXone 1GM/50ML D5W 50 ML IV SCH (08:35)
[2019-06-29 09:09] LABS: Phosphorus 3.6 mg/dL (2.5-4.90)
[2019-06-29 09:23] VITALS: BP 141/87
[2019-06-29] MEDS: SODIUM CHLOR 0.9% PF (SALINE LOCK) 10ML VIAL/SYR IV SCH ×2 (09:49→22:00)
--- NOTE | 2019-06-29 11:30 | NUR ---
Dr. May, Surgeon, at bedside.
--- NOTE | 2019-06-29 12:24 | NUR ---
Patient taken down to Radiology for a small bowel series via wheelchair; no distress noted at time of departure.
[2019-06-29] MEDS ORDERED: GASTROGRAFIN 120 ML SOL ONE ×2 (12:26→16:58)
--- NOTE | 2019-06-29 12:48 | NUR ---
Patient returned from Radiology, via wheelchair; no distress noted at time of arrival. Will continue to monitor Q1.
[2019-06-29] MEDS ORDERED: LORazepam 2MG/ML-1ML VIAL IV ONE (13:00)
[2019-06-29 13:15] LABS: Basophils # (auto) 0.1 uL; Eosinophils # (auto) 0.2 uL; Eosinophils % (auto) 3.3 % (0.0-7.0); Hematocrit 30.9 % (36.0-46.0); Hemoglobin 10.6 g/dL (12.2-16.2); Lymphocytes # (auto) 0.9 uL; Lymphocytes % (auto) 15.6 % (10.0-50.0); Mean Corpuscular Hemoglobin 30.3 pg (28.0-32.0); Mean Corpuscular Hgb Conc. 34.1 g/dL (32.0-36.0); Mean Corpuscular Volume 88.7 fL (80.0-100.0); Monocytes # (auto) 0.5 uL; Neutrophils # (auto) 4.3 uL; Neutrophils % (auto) 72.1 % (37.0-80.0); Nucleated Red Blood Cells % 0.1 %; Platelet Count (auto) 156 10^3/uL (140-450); Red Blood Cells 3.49 10^6/uL (4.0-5.20); Red Cell Distribution Width 14.3 % (11.8-14.3)
--- NOTE | 2019-06-29 14:04 | NUR ---
Patient taken down to radiology via wheelchair; no distress noted at time of departure.
--- NOTE | 2019-06-29 15:15 | NUR ---
Patient returned from Radiology via wheelchair; no distress noted at time of arrival. Patient resting supine in bed semi-fowlers. Will continue to monitor patient Q1.
--- NOTE | 2019-06-29 15:39 | NUR ---
PT HAS BEEN FEELING WELL ALL DAY WHEN P.T HAS CHECKED ON THEM. PT JUST GOT BACK UP FROM DOWN STAIRS AN WANTS TO SKIP P.T TODAY. SHANIQUE LOPEZ WAS IN ROOM WHEN PT REFUSED. Addendum: 06/29/19 at 1541 by MARY DOUGHERTY PTT Amended: Links added.
[2019-06-29 17:00] VITALS: BP 133/85
--- NOTE | 2019-06-29 19:51 | NUR ---
Opening Shift Note Assumed care of patient, awake and alert. No S/S of distress/SOB or pain. Instructed on POC and to call for assist PRN, will continue to monitor for changes Q1hr and PRN. bed in low position and call light within reach
[2019-06-29] MEDS ORDERED: TPN PER PHARMACY IV NR ×11 (20:00)
[2019-06-29 22:00] VITALS: BP 121/96
--- NOTE | 2019-06-29 22:30 | NUR ---
PER RADIOLOGY OKAY TO CONNECT PATIENT TO SUCTION. PATIENT NG TUBE CONNECTED TO LOW CONTINUOS SUCTION. MEASURING AT 65CM PLACEMENT VERIFIED BY CHEST X RAY AND AUSCULTATION.
--- NOTE | 2019-06-29 23:00 | NUR ---
SUCTION OUTPUT OF 800ML DARK GREEN VIA NG TUBE
[2019-06-30] MEDS: ACCU-CHEK COMFORT CURVE STRIP VI SCH ×4 (00:11→17:42)
[2019-06-30] MEDS: ONDANSETRON HCL 4 MG/2 ML VIAL IV PRN ×3 (04:29→17:30)
[2019-06-30] MEDS: MORPHINE SULFATE 4 MG/ML SYR/VIAL IV PRN ×3 (04:31→17:30)
[2019-06-30 05:24] VITALS: BP 122/80
[2019-06-30] MEDS: metroNIDAZOLE 500MG/100ML 100 ML IV SCH ×3 (06:15→21:44)
[2019-06-30] MEDS: FAMOTIDINE (10MG/ML) 2ML VL IV SCH ×2 (06:15→17:30)
[2019-06-30] MEDS: InsuLIN REG 1unit/0.01ml Soln (100units/ml) SC SCH ×4 (06:25→17:42)
[2019-06-30 06:50] LABS: Basophils # (auto) 0.1 uL; Basophils % (auto) 1.3 % (0.0-2.0); Eosinophils # (auto) 0.1 uL; Eosinophils % (auto) 1.7 % (0.0-7.0); Hematocrit 32.3 % (36.0-46.0); Mean Corpuscular Hemoglobin 33.9 pg (28.0-32.0); Mean Corpuscular Hgb Conc. 34.1 g/dL (32.0-36.0); Mean Corpuscular Volume 99.4 fL (80.0-100.0); Monocytes # (auto) 0.5 uL; Monocytes % (auto) 6.7 % (0.0-12.0); Neutrophils # (auto) 5.1 uL; Neutrophils % (auto) 75.3 % (37.0-80.0); Platelet Count (auto) 167 10^3/uL (140-450); Red Blood Cells 3.25 10^6/uL (4.0-5.20); Red Cell Distribution Width 15.6 % (11.8-14.3); White Blood Cell 6.8 10^3/uL (4.4-10.8)
--- NOTE | 2019-06-30 07:29 | NUR ---
REPORT GIVEN TO CONI BAY
[2019-06-30 07:58] VITALS: BP 137/63
--- NOTE | 2019-06-30 08:00 | NUR ---
Opening Shift Note Assumed care of patient, awake, alert and oriented. No S/S of distress/SOB or pain. Bed in low/locked position, bed rails up x2. Instructed on POC and to call for assist PRN with call light within reach. All questions/concerns answered. Will continue to monitor for changes Q1hr and PRN.
[2019-06-30] MEDS: ENOXAPARIN SOD 40 MG/0.4 ML SYRINGE SC SCH (09:40)
[2019-06-30] MEDS: cefTRIAXone 1GM/50ML D5W 50 ML IV SCH (09:40)
[2019-06-30] MEDS: SODIUM CHLOR 0.9% PF (SALINE LOCK) 10ML VIAL/SYR IV SCH ×2 (09:41→21:44)
[2019-06-30 11:38] LABS: Potassium 3.7 mmol/L (3.5-5.1)
[2019-06-30 11:39] LABS: Albumin 2.4 g/dL (3.4-5.0); Bilirubin, Total 0.6 mg/dL (0.2-1.0); Magnesium 2.2 mg/dL (1.6-2.6); Phosphorus 3.2 mg/dL (2.5-4.90); Total Protein 5.8 g/dL (6.4-8.2)
[2019-06-30 12:52] VITALS: BP 132/90
--- NOTE | 2019-06-30 13:15 | NUR ---
MD ROUNDS DR HENRY AT BEDSIDE DISCUSSING POC WITH PATIENT. ALL QUESTIONS/CONCERNS ANSWERED. WILL CONTINUE TO MONITOR
--- NOTE | 2019-06-30 13:50 | NUR ---
MD ROUNDS DR CAMARENA AT BEDSIDE DISCUSSING POC WITH PATIENT. ALL QUESTIONS/CONCERNS ANSWERED. NEW ORDERS RECEIVED/CARRIED OUT. WILL CONTINUE TO MONITOR
--- NOTE | 2019-06-30 13:54 | NUR ---
Nutrition Follow-up Notes Wt.: 92.4 kg Pt. sleeping at bedside. TPN running at 68 ml/hr at this time. NGT in place with intermittent suctioning with green/brown output in canister. Weight gain trend noted likely d/t IVF since previous assessment. Est. Needs: 1650 kcal to 1850 kcal (18-20 kcal/kgBW), 59 gms to 65 gms pro (1.0-1.3 gms/kgBW d/t low Prealb). Will continue to monitor pertinent labs and reassess nutrient need prn Labs: GLU 165H, Ca 7.9L, all POC <180 mg/dL x 3 days Skin: Tree scale 20, low risk, incision at site of sx per patent attorney. GI: Pt has no BM reported per patent attorney. PES: Altered nutrition related lab values r/t current/chronic medical condition aeb hyperglycemia, hypernatremia, hyperchloremia, elev. BUN, low Phos and Prealbumin levels. (ongoing) Increased nutrient needs r/t current medical condition aeb Acute abdominal pain,Small bowel obstruction,History of uterine cancer, NPO with PN support. (ongoing) Will continue to monitor NPO status, PN tolerance skin status, pertinent labs and weight trend. F/u in 2-3 days. Rec.: 1.) Continue TPN 68 ml/hr as ordered and as tolerated for nutrition support 2.) Advance gradually to oral diet when medically appropriate. 3.) Refer to RD for further nutrition educ. and weight monitoring upon discharge. 4.) Continue current plan of care.
--- NOTE | 2019-06-30 15:00 | NUR ---
NG TUBE D/C NG TUBE. PATIENT TOLERATED WELL
--- NOTE | 2019-06-30 15:49 | NUR ---
assessment Patient is a 68 year old female who is alert and oriented. Patients cognitive abilities are intact. Prior to admission patient lived home with family and functioned with assistance. Per patient she will return home to her prior living arrangements post discharge and family will transport her home. Patients PCP is Dr Powell. Patient feels safe returning home on discharge. Patient may benefit from home health on discharge if she qualifies. PT will assess her needs prior to discharge. I informed patient she has a right to speak to a social media community manager regarding all care. I informed patient she has a right to participate in any and all discharge planning. Patient has a POA and advanced directive. Patient verbalized understanding and agreed to discharge plan. Addendum: 06/30/19 at 1551 by Marina PRIDE Amended: Links added.
[2019-06-30 16:32] VITALS: BP 134/84
--- NOTE | 2019-06-30 19:45 | NUR ---
assumed care, pt. awake, no c/o pain, no sob.
[2019-06-30] MEDS ORDERED: TPN PER PHARMACY IV NR ×11 (20:00)
[2019-06-30] MEDS: LORazepam 2MG/ML-1ML VIAL IV PRN (21:44)
[2019-06-30 22:00] VITALS: BP 133/75
[2019-07-01] MEDS: MORPHINE SULFATE 4 MG/ML SYR/VIAL IV PRN ×3 (01:41→17:36)
[2019-07-01] MEDS: metroNIDAZOLE 500MG/100ML 100 ML IV SCH (05:40)
[2019-07-01] MEDS: LORazepam 2MG/ML-1ML VIAL IV PRN ×2 (05:49→20:36)
[2019-07-01 06:05] VITALS: BP 110/70
[2019-07-01] MEDS: FAMOTIDINE (10MG/ML) 2ML VL IV SCH ×2 (06:17→17:36)
--- NOTE | 2019-07-01 07:23 | NUR ---
Opening Shift Note Assumed care of patient, asleep. No S/S of distress/SOB or pain. Bed in low/locked position, bed rails up x2. Will continue to monitor for changes Q1hr and PRN.
[2019-07-01] MEDS: cefTRIAXone 1GM/50ML D5W 50 ML IV SCH (08:43)
[2019-07-01] MEDS: SODIUM CHLOR 0.9% PF (SALINE LOCK) 10ML VIAL/SYR IV SCH ×2 (08:44→21:49)
[2019-07-01] MEDS: ENOXAPARIN SOD 40 MG/0.4 ML SYRINGE SC SCH (08:44)
[2019-07-01 08:48] LABS: Albumin 2.4 g/dL (3.4-5.0); Potassium 4.1 mmol/L (3.5-5.1)
[2019-07-01 08:51] LABS: BUN/Creatinine Ratio 33.3; Bilirubin, Total 0.8 mg/dL (0.2-1.0); Phosphorus 2.6 mg/dL (2.5-4.90); Total Protein 5.5 g/dL (6.4-8.2)
[2019-07-01 09:00] VITALS: BP 113/68
[2019-07-01 13:00] VITALS: BP 110/68
[2019-07-01] MEDS: ONDANSETRON HCL 4 MG/2 ML VIAL IV PRN (13:21)
[2019-07-01 17:00] VITALS: BP 128/77
--- NOTE | 2019-07-01 17:55 | NUR ---
PICC DRESSING PICC LINE DRESSING CHANGED PER MD ORDER. PATIENT TOLERATED WELL
--- NOTE | 2019-07-01 19:34 | NUR ---
assumed care, pt. awake, dressing on abdomen dry and intact, not in distress.
[2019-07-01 22:00] VITALS: BP 138/77
[2019-07-02] MEDS: ONDANSETRON HCL 4 MG/2 ML VIAL IV PRN ×2 (02:35→09:31)
[2019-07-02] MEDS: MORPHINE SULFATE 4 MG/ML SYR/VIAL IV PRN ×2 (02:36→09:31)
[2019-07-02 05:00] VITALS: BP 120/82
[2019-07-02] MEDS: FAMOTIDINE (10MG/ML) 2ML VL IV SCH ×2 (06:14→18:01)
[2019-07-02 09:00] VITALS: BP 126/69
[2019-07-02] MEDS: ENOXAPARIN SOD 40 MG/0.4 ML SYRINGE SC SCH (09:30)
[2019-07-02] MEDS: SODIUM CHLOR 0.9% PF (SALINE LOCK) 10ML VIAL/SYR IV SCH ×2 (09:31→21:18)
[2019-07-02] MEDS ORDERED: HYDROcodone-ACET 5/325MG TAB PO PRN (12:30)
[2019-07-02 13:00] VITALS: BP 130/73
--- NOTE | 2019-07-02 13:04 | NUR ---
Nutrition Follow-up Notes Wt.: 92.4 kg Diet advanced to soft texture diet and pt tolerating well with PO intake 100% x 1 meal. No GI distress noted at this time. Est. Needs: 1650 kcal to 1850 kcal (18-20 kcal/kgBW), 59 gms to 65 gms pro (1.0-1.3 gms/kgBW d/t low Prealb). Will continue to monitor pertinent labs and reassess nutrient need prn Labs: BUN 25H, BG 108H, Ca 8L, ALB 2.4L, all POC <180 mg/dL x 3 days Skin: Tree scale 20, low risk, incision at site of sx per ui developer with angular js. GI: Pt has x 2 loose BM PES: Altered nutrition related lab values r/t current/chronic medical condition aeb hyperglycemia, hypernatremia, hyperchloremia, elev. BUN, low Phos and Prealbumin levels. (ongoing) Increased nutrient needs r/t current medical condition aeb Acute abdominal pain,Small bowel obstruction,History of uterine cancer, NPO with PN support. (ongoing) Will continue to monitor NPO status, PN tolerance skin status, pertinent labs and weight trend. F/u in 2-3 days. Rec.: 1.) Continue soft texture diet as ordered and as tolerated. Advance diet to regular when medically able. If PO intake <75% by following assessment, consider ONS Ensure Enlive BID w/meals 2.) Refer to RD for further nutrition educ. and weight monitoring upon discharge. 3.) Continue current plan of care.
[2019-07-02] MEDS: LORazepam 2MG/ML-1ML VIAL IV PRN (16:33)
[2019-07-02 17:00] VITALS: BP 141/85
[2019-07-02] MEDS: Ensure HIGH Protein Chocolate 8oz Bottle PO SCH (18:00)
--- NOTE | 2019-07-02 19:20 | NUR ---
assumed care, pt. awake, relative at bedside, no c/o pain, not in distress.
[2019-07-02 22:15] VITALS: BP 140/89
[2019-07-03 05:14] VITALS: BP 124/67
[2019-07-03] MEDS: FAMOTIDINE (10MG/ML) 2ML VL IV SCH ×2 (06:14→16:36)
--- NOTE | 2019-07-03 07:55 | NUR ---
OPENING SHIFT NOTE ASSUMED CARE OF PATIENT. PT IS AWAKE AND ALERT AND ORIENTED X4. NO SOB OR SIGNS OF DISTRESS NOTED. ALL CONCERNS ADDRESSED. INSTRUCTED ON POC AND TO CALL FOR ASSISTANCE IF NEEDED. BED IN LOWEST POSITION WITH SIDE RAILS UP X2. WILL CONTINUE TO MONITOR.
[2019-07-03 08:39] VITALS: BP 155/95
[2019-07-03] MEDS: ENOXAPARIN SOD 40 MG/0.4 ML SYRINGE SC SCH (09:35)
[2019-07-03] MEDS: LORazepam 2MG/ML-1ML VIAL IV PRN ×2 (09:36→16:35)
[2019-07-03] MEDS: ONDANSETRON HCL 4 MG/2 ML VIAL IV PRN (09:36)
[2019-07-03] MEDS: SODIUM CHLOR 0.9% PF (SALINE LOCK) 10ML VIAL/SYR IV SCH (09:37)
[2019-07-03] MEDS: Ensure HIGH Protein Chocolate 8oz Bottle PO SCH ×2 (09:37→16:36)
[2019-07-03 13:00] VITALS: BP 131/81
[2019-07-03 15:06] VITALS: BP 131/81
[2019-07-03 17:00] VITALS: BP 141/96
--- NOTE | 2019-07-03 17:06 | NUR ---
Discharge instructions given as ordered. Encourage to follow up with PCP as instructed. All questions and concerns addressed. Patient verbalized understanding. Medication reconciliation form completed and copy given to patient. PICC LINE removed with catheter intact, pressure dressing applied. Telemetry unit returned to ICU. Patient taken to vehicle via wheelchair with all personal belongings, accompanied by staff and family member. No distress noted at time of departure.
== END 2019-07-03 17:00 | disposition home or self-care (01) | DRG 336 ==
LOC: EDBD 12:25 → ER 12:33 → TELE 12:34 → TELE-WESTW 21:00
PROVIDERS: ADMIT Internal Medicine; ATTEND Internal Medicine Nephrology
PROC: 0DTJ0ZZ Resection of Appendix, Open Approach (ICD-10-PCS; 2019-06-24)
PROC: 0D9670Z Drainage of Stomach with Drainage Device, Via Natural or Artificial Opening (ICD-10-PCS; 2019-06-24)
PROC: 0DN80ZZ Release Small Intestine, Open Approach (ICD-10-PCS; principal; 2019-06-24 07:47)
DX: K56.601 Complete intestinal obstruction, unspecified as to cause (principal); K52.0 Gastroenteritis and colitis due to radiation; N13.30 Unspecified hydronephrosis; E87.0 Hyperosmolality and hypernatremia; E66.9 Obesity, unspecified; Z68.33 Body mass index [BMI] 33.0-33.9, adult; E11.9 Type 2 diabetes mellitus without complications; F41.9 Anxiety disorder, unspecified; K21.9 Gastro-esophageal reflux disease without esophagitis; I10 Essential (primary) hypertension; K76.0 Fatty (change of) liver, not elsewhere classified; D64.9 Anemia, unspecified; E87.6 Hypokalemia; D69.6 Thrombocytopenia, unspecified; E88.09 Other disorders of plasma-protein metabolism, not elsewhere classified; M51.36 Other intervertebral disc degeneration, lumbar region; Z82.49 Family history of ischemic heart disease and other diseases of the circulatory system; Z83.3 Family history of diabetes mellitus; Z85.41 Personal history of malignant neoplasm of cervix uteri; Z85.42 Personal history of malignant neoplasm of other parts of uterus; Z85.72 Personal history of non-Hodgkin lymphomas; Z90.49 Acquired absence of other specified parts of digestive tract; Z90.711 Acquired absence of uterus with remaining cervical stump; Z92.3 Personal history of irradiation; Z88.5 Allergy status to narcotic agent
CPT/HCPCS: 36415; 36569; 71045; 74018; 74176; 74250; 80053; 81001; 82040; 82962; 83690; 83735; 84100; 84478; 85025; 85610; 85730; 86850; 86900; 86901; 93005; 93306; 97116; 97163; 97530; G0378; J0330; J0690; J0696; J1815; J2250; J2405; J2704; J3490; J7060